=== PATIENT | male | born 1985 | race Caucasian/White ===

== ENCOUNTER 2017-12-20 18:23 | Emergency (ER) | payer MEDICAID ==
[~2017-12-20] VITALS: Ht 180.3 cm; Wt 118.8 kg
[~2017-12-20 18:23] MED LIST: METO-292 PO; NO HOME MEDS; ONDA4TAB6 PO; PANT20TA2 PO; PROM25SU46 RC
[2017-12-20] MEDS ORDERED: LIDOcaine 1.5% w/epinephrine 1:200,000 5ml ampul IJ ONE (20:05)
[2017-12-20] MEDS ORDERED: HYDR-565 PO (20:43)
[2017-12-20] MEDS ORDERED: SULF1TAB49 PO (20:43)
[2017-12-20] MEDS ORDERED: sulfamethoxazole/trimethoprim DS (800/160mg) tablet PO ONE (20:45)
[2017-12-20] MEDS ORDERED: HYDROcodone/acetaminophen 10/325mg tab PO ONE (20:45)
[2017-12-20 21:01] VITALS: BP 135/70
== END 2017-12-20 21:07 | disposition home or self-care (01) ==
LOC: ER 18:24
DX: S60.551A Superficial foreign body of right hand, initial encounter (principal); L02.511 Cutaneous abscess of right hand; J45.909 Unspecified asthma, uncomplicated; M19.90 Unspecified osteoarthritis, unspecified site; F12.90 Cannabis use, unspecified, uncomplicated; Z56.0 Unemployment, unspecified; Z98.890 Other specified postprocedural states; Z86.14 Personal history of Methicillin resistant Staphylococcus aureus infection; Z88.1 Allergy status to other antibiotic agents; Z79.899 Other long term (current) drug therapy; W22.8XXA Striking against or struck by other objects, initial encounter; Y93.89 Activity, other specified; Y92.89 Other specified places as the place of occurrence of the external cause; Y99.9 Unspecified external cause status
CPT/HCPCS: 10120; 99284; A6255; A6449; J3490

== ENCOUNTER 2018-07-24 20:36 | Emergency (ER) | payer MEDICAID ==
[~2018-07-24] VITALS: Ht 180.3 cm; Wt 113.0 kg
[2018-07-24 20:40] VITALS: BP 154/108
[2018-07-24] MEDS ORDERED: morphine 4 MG/ML inj SYRINge IV ONE (20:50)
[2018-07-24] MEDS ORDERED: ondansetron/PF 4mg/2ml inj IV ONE (20:50)
[2018-07-24] MEDS ORDERED: haloperidol lactate 5mg/ml inj IM ONE (20:55)
[2018-07-24] MEDS ORDERED: normal saline 1000ML IV soln IVB ONE (20:55)
[2018-07-24] MEDS ORDERED: LORazepam 2 mg/ml vial IV ONE (20:55)
[2018-07-24 21:27] LABS: BASOPHILS % (AUTO) 0.3 % (0-1); EOSINOPHILS % (AUTO) 0.2 % (0-6); HEMOGLOBIN 14.9 g/dl (14.0-17.9); LYMPHOCYTES # (AUTO) 1.5 X10'3 (1.1-4.8); LYMPHOCYTES % (AUTO) 13.1 % (21-51); MEAN CORPUSCULAR HEMOGLOBIN 31.1 PG (27.0-31.0); MEAN CORPUSCULAR HGB CONC 34.6 g/dL (33.0-36.5); MEAN CORPUSCULAR VOLUME 89.9 FL (78-98); MEAN PLATELET VOLUME 8.7 FL (7.4-10.4); MONOCYTES # (AUTO) 0.9 X10'3 (0-0.9); MONOCYTES % (AUTO) 7.7 % (2-12); NEUTROPHILS # (AUTO) 8.8 X10'3 (1.8-7.7); NEUTROPHILS % (AUTO) 78.7 % (42-75); PLATELET COUNT 219 X10'3 (140-440); RED BLOOD COUNT 4.78 X10'6 (4.70-6.10); RED CELL DISTRIBUTION WIDTH 12.2 % (11.5-14.5); WHITE BLOOD COUNT 11.2 X10'3 (4.5-11.0)
[2018-07-24 21:41] LABS: INR 1.1 INR
[2018-07-24 21:44] LABS: ALANINE AMINOTRANSFERASE 21 U/L (12-78); ALBUMIN 4.4 G/DL (3.4-5.0); ALBUMIN/GLOBULIN RATIO 1.3 (1.1-1.5); ALKALINE PHOSPHATASE 62 IU/L (46-116); ANION GAP 11 (8-16); ASPARTATE AMINO TRANSFERASE 20 U/L (10-37); BILIRUBIN,TOTAL 0.5 MG/DL (0.1-1.0); BLOOD UREA NITROGEN 13 MG/DL (7-18); CALCIUM 9.7 MG/DL (8.5-10.1); CHLORIDE 103 MMOL/L (99-107); CREATININE 0.81 MG/DL (0.60-1.10); GLUCOSE 139 MG/DL (70-104); LIPASE 80 U/L (73-393); POTASSIUM 3.3 MMOL/L (3.5-5.1); SODIUM 141 MMOL/L (135-145); TOTAL CARBON DIOXIDE 27.1 MMOL/L (24-32); TOTAL PROTEIN 7.8 G/DL (6.4-8.2); eGFR > 90 ML/MIN
[2018-07-24] MEDS ORDERED: PHE12.5T PO (22:38)
== END 2018-07-24 23:59 | disposition home or self-care (01) ==
LOC: ER 20:37
DX: E86.0 Dehydration (principal); F12.988 Cannabis use, unspecified with other cannabis-induced disorder; R11.2 Nausea with vomiting, unspecified; R10.13 Epigastric pain; J45.909 Unspecified asthma, uncomplicated; M19.90 Unspecified osteoarthritis, unspecified site; Z86.14 Personal history of Methicillin resistant Staphylococcus aureus infection; Z56.0 Unemployment, unspecified; Z98.890 Other specified postprocedural states; Z88.1 Allergy status to other antibiotic agents; Z91.030 Bee allergy status
CPT/HCPCS: 36415; 80053; 85025; 85610; 96372; 96374; 96375; 99283; J1630; J2060; J2270; J2405; J7030; 83690

== ENCOUNTER 2018-07-27 03:23 | Emergency (ER) | payer MEDICAID ==
[~2018-07-27] VITALS: Ht 180.3 cm; Wt 112.8 kg
[~2018-07-27 03:23] MED LIST changes: +PHE12.5T PO
[2018-07-27] MEDS ORDERED: diphenhydrAMINE 50 mg/ml inj IV ONE (03:40)
[2018-07-27] MEDS ORDERED: metoclopramide 5 mg/ml inj IV ONE (03:40)
[2018-07-27] MEDS ORDERED: normal saline 1000ML IV soln IVB ONE ×2 (03:40)
[2018-07-27] MEDS ORDERED: glycopyrrolate 0.2mg/ml inj IV ONE (03:50)
[2018-07-27 04:16] LABS: BASOPHILS % (AUTO) 0.5 % (0-1); EOSINOPHILS % (AUTO) 0.4 % (0-6); HEMATOCRIT 43.1 % (42.0-52.0); HEMOGLOBIN 15.2 g/dl (14.0-17.9); LYMPHOCYTES % (AUTO) 29.2 % (21-51); MEAN CORPUSCULAR HEMOGLOBIN 31.5 PG (27.0-31.0); MEAN CORPUSCULAR HGB CONC 35.1 g/dL (33.0-36.5); MEAN CORPUSCULAR VOLUME 89.7 FL (78-98); MEAN PLATELET VOLUME 8.9 FL (7.4-10.4); MONOCYTES # (AUTO) 0.8 X10'3 (0-0.9); MONOCYTES % (AUTO) 11.4 % (2-12); NEUTROPHILS # (AUTO) 4.1 X10'3 (1.8-7.7); NEUTROPHILS % (AUTO) 58.5 % (42-75); PLATELET COUNT 241 X10'3 (140-440); RED BLOOD COUNT 4.81 X10'6 (4.70-6.10); RED CELL DISTRIBUTION WIDTH 12.4 % (11.5-14.5)
[2018-07-27 04:19] VITALS: BP 146/95
[2018-07-27] MEDS ORDERED: haloperidol lactate 5mg/ml inj IM ONE (04:30)
[2018-07-27 04:38] LABS: ALANINE AMINOTRANSFERASE 24 U/L (12-78); ALBUMIN 4.6 G/DL (3.4-5.0); ALBUMIN/GLOBULIN RATIO 1.3 (1.1-1.5); ALKALINE PHOSPHATASE 67 IU/L (46-116); ANION GAP 10 (8-16); ASPARTATE AMINO TRANSFERASE 21 U/L (10-37); BILIRUBIN,TOTAL 0.8 MG/DL (0.1-1.0); BLOOD UREA NITROGEN 9 MG/DL (7-18); BUN/CREATININE RATIO 9.7 (5.4-32.0); CALCIUM 10.2 MG/DL (8.5-10.1); CHLORIDE 100 MMOL/L (99-107); CREATININE 0.93 MG/DL (0.60-1.10); GLUCOSE 122 MG/DL (70-104); LIPASE 50 U/L (73-393); POTASSIUM 3.2 MMOL/L (3.5-5.1); SODIUM 138 MMOL/L (135-145); TOTAL CARBON DIOXIDE 27.6 MMOL/L (24-32); TOTAL PROTEIN 8.1 G/DL (6.4-8.2); eGFR > 90 ML/MIN
[2018-07-27] MEDS ORDERED: ONDA4TAB12 PO (05:13)
--- NOTE | 2018-07-27 05:24 | NUR ---
PT WANTING TO LEAVE, CHECKED WITH DR MEDINA REGARDING PT HAVING HALDOL IM [address] MEDINA SAID THATS FINE AND TO DC PT.
== END 2018-07-27 05:26 | disposition home or self-care (01) ==
LOC: ER 03:23
DX: E86.0 Dehydration (principal); R10.13 Epigastric pain; R11.2 Nausea with vomiting, unspecified; J45.909 Unspecified asthma, uncomplicated; M19.90 Unspecified osteoarthritis, unspecified site; F12.90 Cannabis use, unspecified, uncomplicated; Z86.14 Personal history of Methicillin resistant Staphylococcus aureus infection; Z98.890 Other specified postprocedural states; Z56.0 Unemployment, unspecified; Z88.1 Allergy status to other antibiotic agents; Z79.899 Other long term (current) drug therapy
CPT/HCPCS: 36415; 80053; 83690; 85025; 96361; 96372; 96374; 96375; 99283; J1200; J1630; J2765; J7030; J3490

== ENCOUNTER 2018-08-05 11:04 | Emergency (ER) | payer MEDICAID ==
[~2018-08-05] VITALS: Ht 180.3 cm; Wt 118.0 kg
[~2018-08-05 11:04] MED LIST changes: +ONDA4TAB12 PO
--- NOTE | 2018-08-05 11:35 | NUR ---
PATIENT IN BED 3,AWATING FOR ED MD.
[2018-08-05] MEDS ORDERED: normal saline 1000ML IV soln IVB ONE (12:20)
[2018-08-05] MEDS ORDERED: ondansetron/PF 4mg/2ml inj IV ONE (12:20)
[2018-08-05] MEDS: morphine 4 MG/ML inj SYRINge IV PRN ×2 (12:54→13:57)
[2018-08-05 12:55] LABS: BASOPHILS % (AUTO) 0.3 % (0-1); EOSINOPHILS % (AUTO) 0.1 % (0-6); HEMATOCRIT 41.5 % (42.0-52.0); HEMOGLOBIN 14.6 g/dl (14.0-17.9); LYMPHOCYTES # (AUTO) 0.9 X10'3 (1.1-4.8); LYMPHOCYTES % (AUTO) 12.1 % (21-51); MEAN CORPUSCULAR HEMOGLOBIN 31.9 PG (27.0-31.0); MEAN CORPUSCULAR HGB CONC 35.3 g/dL (33.0-36.5); MEAN CORPUSCULAR VOLUME 90.3 FL (78-98); MEAN PLATELET VOLUME 8.6 FL (7.4-10.4); MONOCYTES # (AUTO) 0.4 X10'3 (0-0.9); MONOCYTES % (AUTO) 5.7 % (2-12); NEUTROPHILS # (AUTO) 6.2 X10'3 (1.8-7.7); NEUTROPHILS % (AUTO) 81.8 % (42-75); PLATELET COUNT 199 X10'3 (140-440); RED CELL DISTRIBUTION WIDTH 12.2 % (11.5-14.5); WHITE BLOOD COUNT 7.6 X10'3 (4.5-11.0)
[2018-08-05 13:02] LABS: ALANINE AMINOTRANSFERASE 26 U/L (12-78); ALBUMIN/GLOBULIN RATIO 1.2 (1.1-1.5); ALKALINE PHOSPHATASE 58 IU/L (46-116); ANION GAP 6 (8-16); ASPARTATE AMINO TRANSFERASE 19 U/L (10-37); BILIRUBIN,TOTAL 0.4 MG/DL (0.1-1.0); BLOOD UREA NITROGEN 12 MG/DL (7-18); BUN/CREATININE RATIO 17.1 (5.4-32.0); CALCIUM 9.1 MG/DL (8.5-10.1); CHLORIDE 104 MMOL/L (99-107); GLUCOSE 130 MG/DL (70-104); LIPASE 66 U/L (73-393); POTASSIUM 3.7 MMOL/L (3.5-5.1); SODIUM 138 MMOL/L (135-145); TOTAL CARBON DIOXIDE 27.6 MMOL/L (24-32); TOTAL PROTEIN 7.4 G/DL (6.4-8.2); eGFR > 90 ML/MIN
[2018-08-05] MEDS ORDERED: CIPR-230 PO (13:48)
[2018-08-05 13:59] VITALS: BP 140/77
[2018-08-05 13:59] LABS: CLARITY,URINE CLOUDY (Clear); COLOR,URINE YELLOW (Yellow); GLUCOSE, URINE NEGATIVE (Neg); KETONES,URINE TRACE mg/dl (Neg); LEUKOCYTE ESTERASE ,URINE NEGATIVE (Neg); NITRITES, URINE NEGATIVE (Neg); OCCULT BLOOD,URINE NEGATIVE (Neg); PH,URINE 5.5 (4.8-8.0); PROTEIN,URINE TRACE mg/dl (Neg); UROBILINOGEN,URINE 0.2 E.U/dL (0.2-1.0)
[2018-08-05 14:04] LABS: UA COLLECTION TYPE CLN CATCH MIDSTREAM
[2018-08-05 14:05] LABS: BACTERIA,URINE FEW /HPF (Neg); MUCUS STRANDS MANY /LPF (Neg); SQUAMOUS EPITHELIAL CELL,UR FEW /LPF (FEW)
[2018-08-05 14:06] LABS: RBC,URINE 0-2 /HPF (0-2); WBC,URINE 0-4 /HPF (0-4)
[2018-08-08 15:13] LABS: OCCULT BLOOD STOOL NEGATIVE (Neg)
== END 2018-08-05 14:01 | disposition home or self-care (01) ==
LOC: ER 11:05
DX: K52.89 Other specified noninfective gastroenteritis and colitis (principal); K92.1 Melena; J45.909 Unspecified asthma, uncomplicated; M19.90 Unspecified osteoarthritis, unspecified site; F12.90 Cannabis use, unspecified, uncomplicated; Z56.0 Unemployment, unspecified; Z98.890 Other specified postprocedural states; Z79.899 Other long term (current) drug therapy; Z88.1 Allergy status to other antibiotic agents
CPT/HCPCS: 36415; 74176; 80053; 81001; 82272; 83690; 85025; 96374; 96375; 96376; 99284; J2270; J2405; J7030

== ENCOUNTER 2018-11-02 09:31 | Emergency (ER) | payer MEDICAID ==
[~2018-11-02] VITALS: Ht 180.3 cm; Wt 113.3 kg
[~2018-11-02 09:31] MED LIST changes: -PHE12.5T PO; +PROM12.512 PO
[2018-11-02 09:33] VITALS: BP 116/53
[2018-11-02] MEDS ORDERED: ESCI10TA PO (10:09)
[2018-11-02] MEDS ORDERED: LORA1TAB PO (10:09)
== END 2018-11-02 10:50 | disposition home or self-care (01) ==
LOC: ER 09:31
DX: F32.9 Major depressive disorder, single episode, unspecified (principal); F41.9 Anxiety disorder, unspecified; J45.909 Unspecified asthma, uncomplicated; M19.90 Unspecified osteoarthritis, unspecified site; F12.90 Cannabis use, unspecified, uncomplicated; Z86.14 Personal history of Methicillin resistant Staphylococcus aureus infection; Z98.890 Other specified postprocedural states; Z56.0 Unemployment, unspecified; Z88.1 Allergy status to other antibiotic agents; Z79.899 Other long term (current) drug therapy
CPT/HCPCS: 99284

== ENCOUNTER 2018-11-17 10:17 | Emergency (ER) | payer MEDICAID ==
[~2018-11-17] VITALS: Ht 180.3 cm; Wt 109.2 kg
[~2018-11-17 10:17] MED LIST changes: +ESCI10TA PO; -METO-292 PO; -NO HOME MEDS; -ONDA4TAB12 PO; -ONDA4TAB6 PO; -PANT20TA2 PO; -PROM12.512 PO; -PROM25SU46 RC
[2018-11-17 11:34] LABS: BASOPHILS % (AUTO) 0.2 % (0-1); EOSINOPHILS % (AUTO) 0.1 % (0-6); HEMATOCRIT 43.3 % (42.0-52.0); HEMOGLOBIN 15.2 g/dl (14.0-17.9); LYMPHOCYTES % (AUTO) 13.1 % (21-51); MEAN CORPUSCULAR HEMOGLOBIN 31.6 PG (27.0-31.0); MEAN CORPUSCULAR HGB CONC 35.1 g/dL (33.0-36.5); MEAN PLATELET VOLUME 8.1 FL (7.4-10.4); MONOCYTES # (AUTO) 0.4 X10'3 (0-0.9); NEUTROPHILS # (AUTO) 6.4 X10'3 (1.8-7.7); NEUTROPHILS % (AUTO) 81.6 % (42-75); PLATELET COUNT 213 X10'3 (140-440); RED BLOOD COUNT 4.81 X10'6 (4.70-6.10); RED CELL DISTRIBUTION WIDTH 12.2 % (11.5-14.5); WHITE BLOOD COUNT 7.9 X10'3 (4.5-11.0)
[2018-11-17 11:55] LABS: ALANINE AMINOTRANSFERASE 22 U/L (12-78); ALBUMIN 4.4 G/DL (3.4-5.0); ALBUMIN/GLOBULIN RATIO 1.2 (1.1-1.5); ALKALINE PHOSPHATASE 66 IU/L (46-116); ANION GAP 8 (8-16); ASPARTATE AMINO TRANSFERASE 14 U/L (10-37); BILIRUBIN,TOTAL 0.5 MG/DL (0.1-1.0); BLOOD UREA NITROGEN 13 MG/DL (7-18); BUN/CREATININE RATIO 18.6 (5.4-32.0); CALCIUM 9.4 MG/DL (8.5-10.1); CHLORIDE 101 MMOL/L (99-107); GLUCOSE 102 MG/DL (70-104); LIPASE 66 U/L (73-393); POTASSIUM 3.5 MMOL/L (3.5-5.1); SODIUM 136 MMOL/L (135-145); TOTAL CARBON DIOXIDE 26.7 MMOL/L (24-32); TOTAL PROTEIN 8.1 G/DL (6.4-8.2); eGFR > 90 ML/MIN
[2018-11-17] MEDS ORDERED: normal saline 1000ml 1,000 ML IV ONE (12:35)
[2018-11-17] MEDS ORDERED: ondansetron/PF 4mg/2ml inj IV ONE (12:55)
[2018-11-17] MEDS ORDERED: haloperidol lactate 5mg/ml inj IM ONE (12:55)
[2018-11-17] MEDS ORDERED: diphenhydrAMINE 50 mg/ml inj IM ONE (12:55)
[2018-11-17] MEDS ORDERED: ketorolac tromethamine 15mg/ml inj. IV ONE (13:30)
[2018-11-17] MEDS ORDERED: LORazepam 2 mg/ml vial IV ONE (14:00)
[2018-11-17] MEDS ORDERED: PROM12.512 PO (14:19)
[2018-11-17 14:27] VITALS: BP 140/80
[2018-11-17 15:48] LABS: OCCULT BLOOD STOOL NEGATIVE (Neg)
== END 2018-11-17 14:30 | disposition home or self-care (01) ==
LOC: ER 10:17
DX: R11.2 Nausea with vomiting, unspecified (principal); R19.7 Diarrhea, unspecified; R10.13 Epigastric pain; R10.11 Right upper quadrant pain; M19.90 Unspecified osteoarthritis, unspecified site; J45.909 Unspecified asthma, uncomplicated; F12.90 Cannabis use, unspecified, uncomplicated; Z86.14 Personal history of Methicillin resistant Staphylococcus aureus infection; Z98.890 Other specified postprocedural states; Z56.0 Unemployment, unspecified; Z88.1 Allergy status to other antibiotic agents; Z79.899 Other long term (current) drug therapy
CPT/HCPCS: 36415; 80053; 82272; 83690; 85025; 85610; 96361; 96372; 96374; 96375; 99284; J1200; J1630; J1885; J2060; J2405; J7030; 99283

== ENCOUNTER 2018-11-20 10:07 | Emergency (ER) | payer MEDICAID ==
[~2018-11-20] VITALS: Ht 180.3 cm; Wt 122.7 kg
[~2018-11-20 10:07] MED LIST changes: +PROM12.512 PO
[2018-11-20 11:22] LABS: BASOPHILS % (AUTO) 0.4 % (0-1); EOSINOPHILS % (AUTO) 0.1 % (0-6); HEMATOCRIT 41.6 % (42.0-52.0); HEMOGLOBIN 14.3 g/dl (14.0-17.9); LYMPHOCYTES # (AUTO) 0.8 X10'3 (1.1-4.8); LYMPHOCYTES % (AUTO) 12.1 % (21-51); MEAN CORPUSCULAR HEMOGLOBIN 31.2 PG (27.0-31.0); MEAN CORPUSCULAR HGB CONC 34.4 g/dL (33.0-36.5); MEAN CORPUSCULAR VOLUME 90.9 FL (78-98); MEAN PLATELET VOLUME 8.3 FL (7.4-10.4); MONOCYTES # (AUTO) 0.4 X10'3 (0-0.9); MONOCYTES % (AUTO) 6.7 % (2-12); NEUTROPHILS # (AUTO) 5.1 X10'3 (1.8-7.7); NEUTROPHILS % (AUTO) 80.7 % (42-75); PLATELET COUNT 211 X10'3 (140-440); RED BLOOD COUNT 4.58 X10'6 (4.70-6.10); RED CELL DISTRIBUTION WIDTH 12.2 % (11.5-14.5); WHITE BLOOD COUNT 6.3 X10'3 (4.5-11.0)
[2018-11-20 11:23] LABS: ALANINE AMINOTRANSFERASE 24 U/L (12-78); ALBUMIN 4.1 G/DL (3.4-5.0); ALBUMIN/GLOBULIN RATIO 1.2 (1.1-1.5); ALKALINE PHOSPHATASE 57 IU/L (46-116); ANION GAP 8 (8-16); ASPARTATE AMINO TRANSFERASE 25 U/L (10-37); BILIRUBIN,TOTAL 0.6 MG/DL (0.1-1.0); BLOOD UREA NITROGEN 11 MG/DL (7-18); BUN/CREATININE RATIO 15.3 (5.4-32.0); CALCIUM 9.1 MG/DL (8.5-10.1); CHLORIDE 104 MMOL/L (99-107); CREATININE 0.72 MG/DL (0.60-1.10); GLUCOSE 98 MG/DL (70-104); POTASSIUM 3.6 MMOL/L (3.5-5.1); SODIUM 139 MMOL/L (135-145); TOTAL CARBON DIOXIDE 26.8 MMOL/L (24-32); TOTAL PROTEIN 7.4 G/DL (6.4-8.2); eGFR > 90 ML/MIN
--- NOTE | 2018-11-20 11:27 | NUR ---
PT UNABLE TO VOID FOR UA AT THIS TIME.
[2018-11-20] MEDS ORDERED: metoclopramide 5 mg/ml inj IV ONE (11:30)
[2018-11-20 11:58] LABS: LIPASE 64 U/L (73-393)
[2018-11-20] MEDS ORDERED: normal saline 1000ML IV soln IVB ONE (12:10)
--- NOTE | 2018-11-20 12:10 | NUR ---
NOTIFIED DR GRACE OF [facility], NEW ORDER FOR 2L NS BOLUS.
[2018-11-20 13:42] LABS: CLARITY,URINE CLEAR (Clear); COLOR,URINE YELLOW (Yellow); GLUCOSE, URINE NEGATIVE (Neg); KETONES,URINE 40 mg/dl (Neg); LEUKOCYTE ESTERASE ,URINE NEGATIVE (Neg); NITRITES, URINE NEGATIVE (Neg); OCCULT BLOOD,URINE NEGATIVE (Neg); PH,URINE 6.5 (4.8-8.0); PROTEIN,URINE TRACE mg/dl (Neg)
[2018-11-20 13:44] LABS: UA COLLECTION TYPE VOIDED
[2018-11-20 13:49] LABS: BACTERIA,URINE NONE SEEN /HPF (Neg); MUCUS STRANDS MODERATE /LPF (Neg); RBC,URINE NONE SEEN /HPF (0-2); SQUAMOUS EPITHELIAL CELL,UR FEW /LPF (FEW); WBC,URINE 0-4 /HPF (0-4)
[2018-11-20 14:24] VITALS: BP 138/84
== END 2018-11-20 14:26 | disposition home or self-care (01) ==
LOC: ER 10:08
DX: R11.2 Nausea with vomiting, unspecified (principal); R42 Dizziness and giddiness; J45.909 Unspecified asthma, uncomplicated; M19.90 Unspecified osteoarthritis, unspecified site; F12.90 Cannabis use, unspecified, uncomplicated; Z86.14 Personal history of Methicillin resistant Staphylococcus aureus infection; Z98.890 Other specified postprocedural states; Z56.0 Unemployment, unspecified; Z88.1 Allergy status to other antibiotic agents; Z79.899 Other long term (current) drug therapy
CPT/HCPCS: 36415; 80053; 81001; 83690; 85025; 85610; 96361; 96374; 99283; J2765; J7030

== ENCOUNTER 2019-05-10 09:11 | Emergency (ER) | payer MEDICAID ==
[~2019-05-10] VITALS: Ht 180.3 cm; Wt 112.0 kg
[2019-05-10] MEDS ORDERED: diphenhydrAMINE 50 mg/ml inj IV ONE (09:25)
[2019-05-10] MEDS ORDERED: LORazepam 2 mg/ml vial IV ONE (09:25)
[2019-05-10] MEDS ORDERED: normal saline 1000ML IV soln IVB ONE (09:25)
[2019-05-10] MEDS ORDERED: ondansetron/PF 4mg/2ml inj IV ONE (09:25)
[2019-05-10] MEDS ORDERED: haloperidol lactate 5mg/ml inj IM ONE (09:25)
[2019-05-10 10:02] LABS: BASOPHILS % (AUTO) 0.3 % (0-1); EOSINOPHILS % (AUTO) 0.3 % (0-6); HEMOGLOBIN 15.5 g/dl (14.0-17.9); LYMPHOCYTES % (AUTO) 12.7 % (21-51); MEAN CORPUSCULAR HGB CONC 34.4 g/dL (33.0-36.5); MEAN PLATELET VOLUME 8.7 FL (7.4-10.4); MONOCYTES # (AUTO) 0.6 X10'3 (0-0.9); MONOCYTES % (AUTO) 7.2 % (2-12); NEUTROPHILS # (AUTO) 6.6 X10'3 (1.8-7.7); NEUTROPHILS % (AUTO) 79.5 % (42-75); PLATELET COUNT 212 X10'3 (140-440); RED CELL DISTRIBUTION WIDTH 11.9 % (11.5-14.5); WHITE BLOOD COUNT 8.3 X10'3 (4.5-11.0)
[2019-05-10 10:14] LABS: ALANINE AMINOTRANSFERASE 19 U/L (12-78); ALBUMIN 4.6 G/DL (3.4-5.0); ALBUMIN/GLOBULIN RATIO 1.2 (1.1-1.5); ALKALINE PHOSPHATASE 73 IU/L (46-116); ANION GAP 10 (8-16); ASPARTATE AMINO TRANSFERASE 17 U/L (10-37); BILIRUBIN,TOTAL 0.6 MG/DL (0.1-1.0); BLOOD UREA NITROGEN 12 MG/DL (7-18); BUN/CREATININE RATIO 15.4 (5.4-32.0); CHLORIDE 104 MMOL/L (99-107); CREATININE 0.78 MG/DL (0.60-1.10); GLUCOSE 141 MG/DL (70-104); LIPASE 55 U/L (73-393); POTASSIUM 3.8 MMOL/L (3.5-5.1); SODIUM 141 MMOL/L (135-145); TOTAL CARBON DIOXIDE 27.1 MMOL/L (24-32); TOTAL PROTEIN 8.4 G/DL (6.4-8.2); eGFR > 90 ML/MIN
[2019-05-10] MEDS ORDERED: ketorolac trometh. 30mg/ml inj. IV ONE (10:25)
[2019-05-10 11:50] VITALS: BP 123/52
== END 2019-05-10 12:19 | disposition home or self-care (01) ==
LOC: ER 09:11
DX: R11.15 Cyclical vomiting syndrome unrelated to migraine (principal); R10.84 Generalized abdominal pain; J45.909 Unspecified asthma, uncomplicated; M19.90 Unspecified osteoarthritis, unspecified site; F12.90 Cannabis use, unspecified, uncomplicated; Z56.0 Unemployment, unspecified; Z98.890 Other specified postprocedural states; Z86.14 Personal history of Methicillin resistant Staphylococcus aureus infection; Z88.1 Allergy status to other antibiotic agents; Z79.899 Other long term (current) drug therapy
CPT/HCPCS: 36415; 80053; 83690; 85025; 86885; 86900; 86901; 93005; 96361; 96372; 96374; 96375; 99284; J1200; J1630; J1885; J2060; J2405; J7030

== ENCOUNTER 2019-05-21 08:36 | Emergency (ER) | payer MEDICAID ==
[~2019-05-21] VITALS: Ht 180.3 cm; Wt 107.9 kg
[2019-05-21] MEDS ORDERED: diphenhydrAMINE 50 mg/ml inj IV ONE (09:30)
[2019-05-21] MEDS ORDERED: proCHLORperazine 10 MG/2 ml inj IV ONE (09:30)
[2019-05-21] MEDS ORDERED: normal saline 1000ML IV soln IVB ONE (09:30)
[2019-05-21] MEDS ORDERED: famotidine/PF 10 mg/ml inj IV ONE (09:30)
[2019-05-21] MEDS ORDERED: ketorolac tromethamine 15mg/ml inj. IV ONE (09:30)
[2019-05-21 09:51] LABS: HEMATOCRIT 44.1 % (42.0-52.0); HEMOGLOBIN 15.2 g/dl (14.0-17.9); MEAN CORPUSCULAR HEMOGLOBIN 30.9 PG (27.0-31.0); MEAN CORPUSCULAR HGB CONC 34.4 g/dL (33.0-36.5); MEAN CORPUSCULAR VOLUME 89.7 FL (78-98); RED BLOOD COUNT 4.92 X10'6 (4.70-6.10); RED CELL DISTRIBUTION WIDTH 12.1 % (11.5-14.5)
[2019-05-21 09:52] LABS: BASOPHILS % (AUTO) 0.2 % (0-1); EOSINOPHILS % (AUTO) 0.2 % (0-6); LYMPHOCYTES # (AUTO) 0.7 X10'3 (1.1-4.8); MONOCYTES # (AUTO) 0.4 X10'3 (0-0.9); MONOCYTES % (AUTO) 4.1 % (2-12); NEUTROPHILS # (AUTO) 8.2 X10'3 (1.8-7.7); NEUTROPHILS % (AUTO) 88.5 % (42-75); PLATELET COUNT 195 X10'3 (140-440); WHITE BLOOD COUNT 9.3 X10'3 (4.5-11.0)
[2019-05-21 09:55] LABS: ALANINE AMINOTRANSFERASE 14 U/L (12-78); ALBUMIN 4.4 G/DL (3.4-5.0); ALBUMIN/GLOBULIN RATIO 1.3 (1.1-1.5); ALKALINE PHOSPHATASE 64 IU/L (46-116); ANION GAP 10 (8-16); ASPARTATE AMINO TRANSFERASE 19 U/L (10-37); BILIRUBIN,TOTAL 0.6 MG/DL (0.1-1.0); BLOOD UREA NITROGEN 11 MG/DL (7-18); BUN/CREATININE RATIO 14.7 (5.4-32.0); CALCIUM 9.4 MG/DL (8.5-10.1); CHLORIDE 102 MMOL/L (99-107); CREATININE 0.75 MG/DL (0.60-1.10); GLUCOSE 146 MG/DL (70-104); LIPASE 54 U/L (73-393); POTASSIUM 3.5 MMOL/L (3.5-5.1); SODIUM 139 MMOL/L (135-145); TOTAL CARBON DIOXIDE 27.5 MMOL/L (24-32); TOTAL PROTEIN 7.9 G/DL (6.4-8.2); eGFR > 90 ML/MIN
[2019-05-21 10:56] VITALS: BP 136/79
[2019-05-21] MEDS ORDERED: DICY10CA88 PO (11:31)
[2019-05-21] MEDS ORDERED: ONDA4TAB6 PO (11:31)
[2019-05-21 11:55] LABS: URINE AMPHETAMINE SCREEN NEGATIVE (Neg); URINE BARBITUATE SCREEN NEGATIVE (Neg); URINE BENZODIAZEPINES SCREEN NEGATIVE (Neg); URINE CANNABINOID SCREEN POSITIVE (Neg); URINE COCAINE SCREEN NEGATIVE (Neg); URINE METHADONE SCREEN NEGATIVE (Neg); URINE OPIATE SCREEN NEGATIVE (Neg); URINE PHENCYCLIDINE SCREEN NEGATIVE (Neg)
[2019-05-21 11:56] LABS: COLOR,URINE YELLOW (Yellow); GLUCOSE, URINE NEGATIVE (Neg); KETONES,URINE 15 mg/dl (Neg); LEUKOCYTE ESTERASE ,URINE NEGATIVE (Neg); NITRITES, URINE NEGATIVE (Neg); OCCULT BLOOD,URINE NEGATIVE (Neg); PROTEIN,URINE TRACE mg/dl (Neg)
[2019-05-21 12:04] LABS: CLARITY,URINE SLIGHTLY CLOUDY (Clear); UA COLLECTION TYPE CLN CATCH MIDSTREAM
[2019-05-21 12:07] LABS: RBC,URINE NONE SEEN /HPF (0-2); WBC,URINE 0-4 /HPF (0-4)
[2019-05-21 12:08] LABS: BACTERIA,URINE NONE SEEN /HPF (Neg); MUCUS STRANDS MANY /LPF (Neg); SQUAMOUS EPITHELIAL CELL,UR NONE SEEN /LPF (FEW)
== END 2019-05-21 11:52 | disposition home or self-care (01) ==
LOC: ER 08:37
DX: R10.84 Generalized abdominal pain (principal); R11.2 Nausea with vomiting, unspecified; J45.909 Unspecified asthma, uncomplicated; M19.90 Unspecified osteoarthritis, unspecified site; F12.90 Cannabis use, unspecified, uncomplicated; Z56.0 Unemployment, unspecified; Z98.890 Other specified postprocedural states; Z86.14 Personal history of Methicillin resistant Staphylococcus aureus infection; Z88.1 Allergy status to other antibiotic agents; Z79.899 Other long term (current) drug therapy
CPT/HCPCS: 36415; 76700; 80053; 80305; 81001; 83690; 85025; 96374; 96375; 99284; J0780; J1200; J1885; J3490; J7030

== ENCOUNTER 2019-05-24 07:15 | Emergency (ER) | payer MEDICAID ==
[~2019-05-24] VITALS: Ht 180.3 cm; Wt 107.0 kg
[~2019-05-24 07:15] MED LIST changes: +DICY10CA88 PO; +ONDA4TAB6 PO
[2019-05-24 07:37] VITALS: BP 181/107
--- NOTE | 2019-05-24 07:40 | NUR ---
Patient walked to room, donned gown/warm blanket. Cooperative and denies SI, yet crying at times and guarding abdomen. Clear emesis x2 to bag, awaiting
[2019-05-24] MEDS ORDERED: haloperidol lactate 5mg/ml inj IM ONE (08:25)
[2019-05-24] MEDS ORDERED: metoclopramide 5 mg/ml inj IV ONE (08:25)
[2019-05-24] MEDS ORDERED: normal saline 1000ML IV soln IVB ONE (08:25)
== END 2019-05-24 08:32 | disposition left against medical advice (07) ==
LOC: ER 07:16
DX: R11.15 Cyclical vomiting syndrome unrelated to migraine (principal); R10.84 Generalized abdominal pain; R19.7 Diarrhea, unspecified; J45.909 Unspecified asthma, uncomplicated; M19.90 Unspecified osteoarthritis, unspecified site; F12.90 Cannabis use, unspecified, uncomplicated; Z86.14 Personal history of Methicillin resistant Staphylococcus aureus infection; Z98.890 Other specified postprocedural states; Z56.0 Unemployment, unspecified; Z88.1 Allergy status to other antibiotic agents; Z79.899 Other long term (current) drug therapy
CPT/HCPCS: 99281

== ENCOUNTER 2019-06-09 06:38 | Emergency (ER) | payer MEDICAID ==
[~2019-06-09] VITALS: Ht 180.3 cm; Wt 110.0 kg
[2019-06-09 06:42] VITALS: BP 129/93
[2019-06-09] MEDS ORDERED: normal saline 1000ML IV soln IVB ONE ×2 (06:55→07:35)
[2019-06-09] MEDS ORDERED: ondansetron/PF 4mg/2ml inj IV ONE (06:55)
[2019-06-09] MEDS ORDERED: chlorproMAZINE 25mg/ml inj. IV ONE (07:35)
[2019-06-09 07:36] LABS: BASOPHILS % (AUTO) 0.6 % (0-1); EOSINOPHILS # (AUTO) 0.1 X10'3 (0-0.9); EOSINOPHILS % (AUTO) 0.9 % (0-6); HEMATOCRIT 43.7 % (42.0-52.0); HEMOGLOBIN 15.4 g/dl (14.0-17.9); LYMPHOCYTES # (AUTO) 1.4 X10'3 (1.1-4.8); LYMPHOCYTES % (AUTO) 24.5 % (21-51); MEAN CORPUSCULAR HEMOGLOBIN 31.2 PG (27.0-31.0); MEAN CORPUSCULAR HGB CONC 35.2 g/dL (33.0-36.5); MEAN CORPUSCULAR VOLUME 88.5 FL (78-98); MEAN PLATELET VOLUME 8.8 FL (7.4-10.4); MONOCYTES # (AUTO) 0.7 X10'3 (0-0.9); MONOCYTES % (AUTO) 11.7 % (2-12); NEUTROPHILS # (AUTO) 3.5 X10'3 (1.8-7.7); NEUTROPHILS % (AUTO) 62.3 % (42-75); PLATELET COUNT 238 X10'3 (140-440); RED BLOOD COUNT 4.93 X10'6 (4.70-6.10); RED CELL DISTRIBUTION WIDTH 12.1 % (11.5-14.5); WHITE BLOOD COUNT 5.6 X10'3 (4.5-11.0)
[2019-06-09] MEDS ORDERED: ONDA4TAB6 PO (07:39)
[2019-06-09] MEDS ORDERED: PHE25R PR (07:39)
[2019-06-09 07:57] LABS: ALANINE AMINOTRANSFERASE 17 U/L (12-78); ALBUMIN 4.5 G/DL (3.4-5.0); ALBUMIN/GLOBULIN RATIO 1.2 (1.1-1.5); ALKALINE PHOSPHATASE 63 IU/L (46-116); ANION GAP 11 (8-16); ASPARTATE AMINO TRANSFERASE 21 U/L (10-37); BILIRUBIN,TOTAL 0.9 MG/DL (0.1-1.0); BLOOD UREA NITROGEN 13 MG/DL (7-18); BUN/CREATININE RATIO 15.9 (5.4-32.0); CALCIUM 9.5 MG/DL (8.5-10.1); CHLORIDE 98 MMOL/L (99-107); CREATININE 0.82 MG/DL (0.60-1.10); GLUCOSE 124 MG/DL (70-104); LIPASE 55 U/L (73-393); SODIUM 138 MMOL/L (135-145); TOTAL CARBON DIOXIDE 29.4 MMOL/L (24-32); TOTAL PROTEIN 8.3 G/DL (6.4-8.2); eGFR > 90 ML/MIN
[2019-06-09 07:59] LABS: POTASSIUM 2.8 MMOL/L (3.5-5.1)
== END 2019-06-09 08:13 | disposition left against medical advice (07) ==
LOC: ER 06:38
DX: R11.2 Nausea with vomiting, unspecified (principal); E87.6 Hypokalemia; R10.84 Generalized abdominal pain; R19.7 Diarrhea, unspecified; J45.909 Unspecified asthma, uncomplicated; M19.90 Unspecified osteoarthritis, unspecified site; F12.90 Cannabis use, unspecified, uncomplicated; Z86.14 Personal history of Methicillin resistant Staphylococcus aureus infection; Z98.890 Other specified postprocedural states; Z88.1 Allergy status to other antibiotic agents; Z79.899 Other long term (current) drug therapy
CPT/HCPCS: 36415; 80053; 83690; 85025; 96361; 96374; 99283; J2405; J7030

== ENCOUNTER 2019-09-16 21:23 | Emergency (ER) | payer MEDICAID ==
[~2019-09-16] VITALS: Ht 180.3 cm; Wt 104.5 kg
[~2019-09-16 21:23] MED LIST changes: +PHE25R PR
[2019-09-16 21:56] LABS: BASOPHILS % (AUTO) 0.3 % (0-1); EOSINOPHILS % (AUTO) 0 % (0-6); HEMATOCRIT 47.1 % (42.0-52.0); HEMOGLOBIN 16.2 g/dl (14.0-17.9); LYMPHOCYTES # (AUTO) 1.8 X10'3 (1.1-4.8); LYMPHOCYTES % (AUTO) 15.4 % (21-51); MEAN CORPUSCULAR HEMOGLOBIN 31.2 PG (27.0-31.0); MEAN CORPUSCULAR HGB CONC 34.4 g/dL (33.0-36.5); MEAN CORPUSCULAR VOLUME 90.6 FL (78-98); MEAN PLATELET VOLUME 8.8 FL (7.4-10.4); MONOCYTES % (AUTO) 9.2 % (2-12); NEUTROPHILS # (AUTO) 8.6 X10'3 (1.8-7.7); NEUTROPHILS % (AUTO) 75.1 % (42-75); PLATELET COUNT 286 X10'3 (140-440); RED CELL DISTRIBUTION WIDTH 11.8 % (11.5-14.5); WHITE BLOOD COUNT 11.4 X10'3 (4.5-11.0)
[2019-09-16 22:07] LABS: ALANINE AMINOTRANSFERASE 16 U/L (12-78); ALBUMIN 4.9 G/DL (3.4-5.0); ALBUMIN/GLOBULIN RATIO 1.1 (1.1-1.5); ALKALINE PHOSPHATASE 76 IU/L (46-116); ANION GAP 13 (8-16); ASPARTATE AMINO TRANSFERASE 22 U/L (10-37); BILIRUBIN,TOTAL 0.9 MG/DL (0.1-1.0); BLOOD UREA NITROGEN 20 MG/DL (7-18); BUN/CREATININE RATIO 18.2 (5.4-32.0); CALCIUM 10.1 MG/DL (8.5-10.1); CHLORIDE 95 MMOL/L (99-107); GLUCOSE 140 MG/DL (70-104); LIPASE 54 U/L (73-393); POTASSIUM 3.2 MMOL/L (3.5-5.1); SODIUM 137 MMOL/L (135-145); TOTAL CARBON DIOXIDE 29.1 MMOL/L (24-32); TOTAL PROTEIN 9.3 G/DL (6.4-8.2); eGFR 78 ML/MIN
[2019-09-16] MEDS ORDERED: diphenhydrAMINE 50 mg/ml inj IV ONE ×3 (22:10→23:05)
[2019-09-16] MEDS ORDERED: normal saline 1000ml 1,000 ML IV ONE (22:10)
[2019-09-16] MEDS ORDERED: potassium Cl 20 mEq SR tablet PO ONE (22:10)
[2019-09-16] MEDS ORDERED: proCHLORperazine 10 MG/2 ml inj IV ONE (22:10)
[2019-09-16] MEDS ORDERED: ondansetron/PF 4mg/2ml inj IM ONE (22:10)
[2019-09-16] MEDS ORDERED: morphine 4 MG/ML inj SYRINge IM ONE (22:10)
[2019-09-16] MEDS ORDERED: haloperidol lactate 5mg/ml inj IM ONE ×2 (22:50→23:05)
[2019-09-16] MEDS ORDERED: PROC25SU31 RC (22:57)
[2019-09-16] MEDS ORDERED: diphenhydrAMINE 50 mg/ml inj ONE (23:05)
[2019-09-16] MEDS ORDERED: haloperidol lactate 5mg/ml inj ONE (23:05)
[2019-09-16 23:13] VITALS: BP 139/63
== END 2019-09-16 23:15 | disposition home or self-care (01) ==
LOC: ER 21:24
DX: R11.2 Nausea with vomiting, unspecified (principal); R10.84 Generalized abdominal pain; R20.8 Other disturbances of skin sensation; J45.909 Unspecified asthma, uncomplicated; M19.90 Unspecified osteoarthritis, unspecified site; F12.90 Cannabis use, unspecified, uncomplicated; Z86.14 Personal history of Methicillin resistant Staphylococcus aureus infection; Z98.890 Other specified postprocedural states; Z56.0 Unemployment, unspecified; Z88.1 Allergy status to other antibiotic agents; Z79.899 Other long term (current) drug therapy
CPT/HCPCS: 36415; 80053; 83690; 85025; 96372; 96374; 96375; 96376; 99284; J0780; J1200; J1630; J2270; J2405; J7030

== ENCOUNTER 2019-09-19 03:59 | Emergency (ER) | payer MEDICAID ==
[~2019-09-19 03:59] MED LIST changes: +PROC25SU31 RC
== END 2019-09-19 05:02 | disposition left against medical advice (07) ==
LOC: ER 03:59
DX: R11.10 Vomiting, unspecified (principal); Z53.21 Procedure and treatment not carried out due to patient leaving prior to being seen by health care provider

== ENCOUNTER 2019-09-21 06:08 | Emergency (ER) | payer MEDICAID ==
[~2019-09-21] VITALS: Ht 180.3 cm; Wt 96.6 kg
[2019-09-21 06:11] VITALS: BP 144/94
[2019-09-21] MEDS ORDERED: LORazepam 2 mg/ml vial IM ONE (06:25)
[2019-09-21] MEDS ORDERED: haloperidol lactate 5mg/ml inj IM ONE (06:25)
[2019-09-21] MEDS ORDERED: LORA-269 PO (06:43)
--- NOTE | 2019-09-21 07:45 | NUR ---
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
== END 2019-09-21 08:31 | disposition home or self-care (01) ==
LOC: ER 06:09
DX: R11.15 Cyclical vomiting syndrome unrelated to migraine (principal); R10.9 Unspecified abdominal pain; J45.909 Unspecified asthma, uncomplicated; M19.90 Unspecified osteoarthritis, unspecified site; F12.90 Cannabis use, unspecified, uncomplicated; Z86.14 Personal history of Methicillin resistant Staphylococcus aureus infection; Z98.890 Other specified postprocedural states; Z56.0 Unemployment, unspecified; Z79.899 Other long term (current) drug therapy
CPT/HCPCS: 96372; 99284; J1630; J2060

== ENCOUNTER 2019-12-07 12:29 | Emergency (ER) | payer MEDICAID ==
[~2019-12-07 12:29] MED LIST changes: +LORA-269 PO; -PROC25SU31 RC
== END 2019-12-07 13:48 | disposition left against medical advice (07) ==
LOC: ER 12:29
DX: R10.9 Unspecified abdominal pain (principal); Z53.21 Procedure and treatment not carried out due to patient leaving prior to being seen by health care provider

== ENCOUNTER 2021-09-08 10:41 | Emergency (ER) | payer MEDICAID ==
[~2021-09-08] VITALS: Ht 180.3 cm; Wt 104.5 kg
[2021-09-08 10:55] VITALS: BP 130/82
[2021-09-08] MEDS ORDERED: TAM75C PO (11:53)
[2021-09-08] MEDS ORDERED: BENZ-38 PO (11:53)
--- NOTE | 2021-09-08 11:53 | NUR ---
Covid and Flu swab canceled by provider.
== END 2021-09-08 12:20 | disposition home or self-care (01) ==
LOC: ER 10:42
DX: B34.9 Viral infection, unspecified (principal); J45.909 Unspecified asthma, uncomplicated; M19.90 Unspecified osteoarthritis, unspecified site; Z86.14 Personal history of Methicillin resistant Staphylococcus aureus infection; F12.90 Cannabis use, unspecified, uncomplicated; Z56.0 Unemployment, unspecified; Z88.1 Allergy status to other antibiotic agents; Z79.899 Other long term (current) drug therapy
CPT/HCPCS: 99283